=== PATIENT | female | born 1985 ===

== ENCOUNTER 2022-06-20 11:07 | Emergency (ER) | payer BC ==
[2022-06-20 12:08] LABS: ANION GAP 10.8 meq/L (7-15); CHLORIDE,CL 103 mmol/L (98-107); ESTIMATED GFR 126 mL/min (>=60); SODIUM,NA 139 mmol/L (136-145)
[2022-06-20 13:17] LABS: CORONAVIRUS COVID-19 NAA NEGATIVE (NEGATIVE); RESPIRATORY SYNCYTIAL VIR NAA NEGATIVE (NEGATIVE)
== END 2022-06-20 14:00 | disposition home or self-care (01) ==
LOC: LL.ED 11:07
DX: R10.9 Unspecified abdominal pain (principal); F17.210 Nicotine dependence, cigarettes, uncomplicated; Z20.822 Contact with and (suspected) exposure to COVID-19
CPT/HCPCS: 0241U; 36415; 80053; 81001; 83605; 83735; 84703; 85025; 86140; 99284

== ENCOUNTER 2022-08-01 11:56 | Emergency (ER) | payer BC ==
[2022-08-01 12:59] LABS: ANION GAP 10.1 meq/L (7-15); CHLORIDE,CL 103 mmol/L (98-107); SODIUM,NA 141 mmol/L (136-145)
[2022-08-01 13:08] LABS: ESTIMATED GFR 113 mL/min (>=60)
[2022-08-01] MEDS ORDERED: Take Home: Sulfamethoxazole/Trimethoprim 800-160 MG Tab, 6 Tab Pack PO ONE (13:11)
[2022-08-01] MEDS ORDERED: Take Home: diazePAM 5 MG, 4 Tab Pack PO ONE (13:29)
== END 2022-08-01 13:45 | disposition home or self-care (01) ==
LOC: LL.ED 11:56
DX: N39.0 Urinary tract infection, site not specified (principal)
CPT/HCPCS: 36415; 80053; 81001; 81025; 83690; 85025; 86140; 87086; 99284; A9270-GY